=== PATIENT | female | born 1995 | race Caucasian/White ===

== ENCOUNTER 2017-03-18 11:33 | Emergency (ER) | payer BC ==
[~2017-03-18] VITALS: Ht 157.5 cm; Wt 77.3 kg
[2017-03-18 11:34] VITALS: BP 145/62; PULSE 95; TEMP 97.5
[2017-03-18] MEDS ORDERED: MIRENA52 MG IY (11:37)
[2017-03-18] MEDS ORDERED: AMOXICILLIN 8751 TAB PO (12:00)
== END 2017-03-18 12:30 | disposition home or self-care (01) ==
LOC: COL.ER 11:33
DX: S01.551A Open bite of lip, initial encounter (principal); W54.0XXA Bitten by dog, initial encounter; Y92.009 Unspecified place in unspecified non-institutional (private) residence as the place of occurrence of the external cause